=== PATIENT | female | born 1990 | race Caucasian/White ===

== ENCOUNTER 2018-12-28 11:00 | Inpatient (IN) | payer BC ==
[2018-12-28] MEDS ORDERED: HYDROcodone/Acetaminophen 5/325 mg Tablet PO PRN ×4 (11:40→18:40)
[2018-12-28] MEDS ORDERED: NS / Oxytocin 40 units/1000ml 1,000 ML IV PRN (11:40)
[2018-12-28] MEDS ORDERED: hydrALAZINE 20 MG/ML VIAL SLOW IVP PRN ×2 (11:40→18:40)
[2018-12-28] MEDS ORDERED: Promethazine HCl 25 MG/ML VIAL IM PRN ×2 (11:40→12:48)
[2018-12-28] MEDS ORDERED: Zolpidem Tartrate 5 MG TAB PO PRN (11:40)
[2018-12-28] MEDS ORDERED: Ondansetron PF 4 MG/2 ML Vial IVP PRN ×3 (11:40→18:40)
[2018-12-28] MEDS ORDERED: Ibuprofen 800 MG TAB PO PRN (11:40)
[2018-12-28] MEDS ORDERED: Butorphanol Tartrate 1 MG/ML VIAL SLOW IVP PRN (11:40)
[2018-12-28] MEDS ORDERED: Lidocaine 1% (PF) 30 ML VIAL SC PRN (11:40)
[2018-12-28] MEDS ORDERED: NS w/ Oxytocin 10 units 500 ML IV SCH (11:45)
[2018-12-28 12:00] LABS: Hemoglobin 13.6 g/dL (12.0-16.0); Mean Corpuscular HGB CONC 35.2 g/dL (32.0-36.0); Mean Corpuscular Hemoglobin 33.8 pg (27.0-31.0); Mean Corpuscular Volume 96.2 fL (78.0-98.0); Mean Platelet Volume 6.9 fL (7.4-10.4); Platelet Count 209 thou/uL (130-400); RBC Distribution Width 11.5 % (11.5-14.5); Red Blood Cell (RBC) Count 4.02 mill/uL (4.20-5.40); White Blood Cell (WBC) Count 11.3 thou/uL (4.8-10.8)
[2018-12-28] MEDS ORDERED: Fentanyl 4 mcg/Bup 0.1% Cadd 100 ML ONE (12:08)
[2018-12-28] MEDS ORDERED: Lidocaine 1.5%/Epinephrine 1:200,000 5 ML AMPUL IJ ONE (12:22)
[2018-12-28] MEDS ORDERED: Lidocaine 1% PF 5 ML VIAL ONE (12:22)
[2018-12-28] MEDS: Lactated Ringer's 1,000 ML IV SCH ×2 (12:42→12:54)
[2018-12-28 12:43] LABS: HBSAg Index 0.26 S/CO (0-0.99); Hep B Surf Ag Non-Reactive S/CO (NonReactive); Syphilis Antibody Nonreactive (Nonreactive); Syphilis Antibody Index 0.01 S/CO (<1.00 Non-Reactive)
[2018-12-28] MEDS ORDERED: Naloxone HCl 0.4 mg/ml Vial IVP PRN ×2 (12:48)
[2018-12-28] MEDS ORDERED: Lactated Ringer's 500 ML IV PRN (12:48)
[2018-12-28] MEDS ORDERED: ePHEDrine/0.9% NaCl/PF SYRINGE 50 mg/10 ml SLOW IVP PRN (12:48)
[2018-12-28] MEDS ORDERED: Acetaminophen 325 MG TAB PO PRN (12:48)
[2018-12-28] MEDS ORDERED: diphenhydrAMINE 50 MG/ML VIAL IVP PRN (12:48)
[2018-12-28 12:59] VITALS: BMI 27.1
[2018-12-28] MEDS ORDERED: Fentanyl 4 mcg/Bupivacaine 0.1% Cassette 100 ML EPIDURAL SCH (13:00)
[2018-12-28] MEDS ORDERED: Communication Order-Pharmacy FS SCH (13:00)
[2018-12-28] MEDS ORDERED: Milk Of Magnesia 30 ML UDCUP PO PRN (18:40)
[2018-12-28] MEDS ORDERED: Preparation H Ointment 28 GM TUBE PR PRN (18:40)
[2018-12-28] MEDS ORDERED: Adacel (T-DAP) 0.5 ML SYRINGE IM ONE (18:40)
[2018-12-28] MEDS ORDERED: Bisacodyl 10 MG SUPP PR PRN (18:40)
[2018-12-28] MEDS ORDERED: Benzocaine-Menthol 82.5 ML CAN TOP PRN (18:40)
[2018-12-28] MEDS ORDERED: NS / Oxytocin 40 units/1000ml 1,000 ML IV SCH (18:45)
[2018-12-28] MEDS: Ibuprofen 800 MG TAB PO SCH (21:37)
[2018-12-28] MEDS: Docusate Calcium (SURFAK) 240 MG CAP PO SCH (21:37)
--- NOTE | 2018-12-29 02:10 | DN ---
DATE OF PROCEDURE: 12/28/2018 PREOPERATIVE DIAGNOSES: 1. A 28-year-old female, G4, P0-2-1-1 at 37 and 2 days with active labor. 2. Poor obstetric history with a history of a delivery by premature rupture of the membranes at 36 weeks and 1 day, and a history of a 22-week abruption with a demise. 3. Group B Streptococcus negative. 4. Artificial rupture of membranes for clear fluid. 5. Insomnia, on Ambien to aid sleep. POSTOPERATIVE DIAGNOSES: 1. A 28-year-old female, G4, P0-2-1-1 at 37 and 2 days with active labor. 2. Poor obstetric history with a history of a delivery by premature rupture of the membranes at 36 weeks and 1 day, and a history of a 22-week abruption with a demise. 3. Group B Streptococcus negative. 4. Artificial rupture of membranes for clear fluid. 5. Insomnia, on Ambien to aid sleep. 6. Live-born male infant at term. PROCEDURE: Spontaneous vaginal delivery. ANESTHESIA: Epidural. ESTIMATED BLOOD LOSS: 104 mL. CLINICAL HISTORY: This patient is a 28-year-old, G4, P-0-2-1-1, who presented to her office visit today for routine OB care. She was checked and noted to be 5 cm, 60% effaced, and -2 station. The patient had an uneventful course other than the fact of history of poor OB outcomes. The patient was counseled about augmentation of labor and was sent directly as a direct admit to Labor and Delivery. When she was admitted, she had an amniotomy for clear fluid and wanted an epidural immediately afterwards. The epidural was placed with adequate anesthesia. She continued to progress and Pitocin was used to augment her labor. The patient reached complete cervical dilation and +2 station and began to push. DETAILS OF THE PROCEDURE: With good maternal effort, the patient was able to push the vertex to position. She delivered the head and a nuchal cord was noted which was unable to be reduced. The patient also had a compound presentation with the posterior arm delivering with the shoulders. The delivery of the posterior arm, the anterior shoulder, and the remainder of the 's body was delivered. The cried spontaneously. The cord was doubly clamped and cut and placed on the maternal abdomen for stimulation and continued care. Cord blood was obtained. The placenta was then delivered spontaneously intact with a three-vessel cord. Exploration of the introitus, vagina, and cervix noted a small second-degree laceration which was repaired in a running locking fashion with excellent hemostasis. A clot was noted in the cervical os, which was expressed manually and the uterine fundus was noted to be firm and more than 3 cm below the umbilicus. The patient tolerated the procedure well, and was able to recover on Labor and Delivery in satisfactory condition with her . Again, the infant was a live born male with Apgars of 9 and 9 at 1 and 5 minutes respectively. There were no other issues surrounding this delivery. Weight was unavailable at the time of dictation. Job ID: [id number]
[2018-12-29] MEDS: Ibuprofen 800 MG TAB PO SCH ×3 (05:13→21:18)
[2018-12-29] MEDS: Lactated Ringer's 1,000 ML IV SCH ×3 (08:18→12:33)
[2018-12-29] MEDS: Ferrous Sulfate 325 MG TAB PO SCH ×2 (08:18→17:25)
[2018-12-29] MEDS: Prenatal Vitamin 1 TAB PO SCH (08:42)
[2018-12-29] MEDS: Docusate Calcium (SURFAK) 240 MG CAP PO SCH ×2 (08:42→21:21)
[2018-12-29] MEDS ORDERED: Diphenoxylate HCl/Atropine Tablet PO PRN (21:09)
[2018-12-30] MEDS: Lactated Ringer's 1,000 ML IV SCH ×2 (04:57→13:12)
[2018-12-30] MEDS: Ibuprofen 800 MG TAB PO SCH ×2 (04:58→13:46)
[2018-12-30 08:31] VITALS: BP 111/55; TEMP 97.6
[2018-12-30] MEDS: Prenatal Vitamin 1 TAB PO SCH (10:03)
[2018-12-30] MEDS: Docusate Calcium (SURFAK) 240 MG CAP PO SCH (10:03)
[2018-12-30] MEDS: Ferrous Sulfate 325 MG TAB PO SCH (10:04)
== END 2018-12-30 16:15 | disposition home or self-care (01) | DRG 806 ==
LOC: L&D 11:00 → 3SW 20:44
PROVIDERS: ADMIT Obstetrics & Gynecology; ATTEND Obstetrics & Gynecology
PROC: 10E0XZZ Delivery of Products of Conception, External Approach (ICD-10-PCS; principal; 2018-12-28)
PROC: 0KQM0ZZ Repair Perineum Muscle, Open Approach (ICD-10-PCS; 2018-12-28)
DX: O69.81X0 Labor and delivery complicated by cord around neck, without compression, not applicable or unspecified (principal); O99.354 Diseases of the nervous system complicating childbirth; Z37.0 Single live birth; O32.6XX0 Maternal care for compound presentation, not applicable or unspecified; G47.00 Insomnia, unspecified; Z3A.37 37 weeks gestation of pregnancy; O70.1 Second degree perineal laceration during delivery
CPT/HCPCS: 36415; 51702; 85027; 86780; 86850; 86900; 86901; 87340; J2001; J2590; J3490

== ENCOUNTER 2021-06-25 12:43 | Outpatient (CLI) | payer BC ==
[2021-06-26 11:36] LABS: SARS-CoV-2 PCR by NAA Not Detected (NotDetected)
== END 2021-06-25 12:44 | disposition home or self-care (01) ==
LOC: LABBT 12:43
PROVIDERS: ATTEND Internal Medicine Gastroenterology
DX: Z01.812 Encounter for preprocedural laboratory examination (principal); Z20.822 Contact with and (suspected) exposure to COVID-19
CPT/HCPCS: 81256; U0003; U0005

== ENCOUNTER 2021-06-29 07:39 | Day surgery (SDC) | payer BC ==
[2021-06-28 14:40] VITALS: BMI 28.5
[2021-06-29 07:46] LABS: #Basophils 0.1 thou/uL (0.0-0.2); #Eosinphils 0.2 thou/uL (0.0-0.7); #Lymphocytes 4.8 thou/uL (1.20-3.40); #Monocytes 0.7 thou/uL (0.11-0.59); #Neutrophils 4.2 thou/uL (1.40-6.50); %Basophils 1.5 % (0.0-1.0); %Eosinophils 2.1 % (0.0-10.0); %Lymphocytes 47.9 % (21.0-51.0); %Neutrophils 41.6 % (42.0-75.0); Hemoglobin 14.3 g/dL (12.0-16.0); Mean Corpuscular HGB CONC 33.1 g/dL (32.0-36.0); Mean Corpuscular Volume 93.6 fL (78.0-98.0); Mean Platelet Volume 6.4 fL (7.4-10.4); Platelet Count 296 thou/uL (130-400); RBC Distribution Width 13.6 % (11.5-14.5); Red Blood Cell (RBC) Count 4.61 mill/uL (4.20-5.40)
[2021-06-29 08:01] LABS: PTT 27.5 sec (22.9-36.1); Prothrombin Time 13.4 sec (12.0-14.7)
[2021-06-29] MEDS ORDERED: Lidocaine 1% PF 5 ML VIAL ONE ×2 (08:29→09:02)
[2021-06-29] MEDS ORDERED: Sodium Bicarbonate 2.5 MEQ/5 ML VIAL ONE (08:29)
[2021-06-29 09:59] VITALS: BP 105/72; TEMP 99
[2021-06-29] MEDS ORDERED: FLU VACC QS2021-22(6MOS UP)/PF 60 MCG/0.5 ML SYRINGE IM ONE (15:00)
== END 2021-06-29 12:20 | disposition home or self-care (01) ==
LOC: ULT 07:39
PROVIDERS: ATTEND Internal Medicine Gastroenterology
PROC: 0FD23ZX Extraction of Left Lobe Liver, Percutaneous Approach, Diagnostic (ICD-10-PCS; principal; 2021-06-29)
DX: K73.9 Chronic hepatitis, unspecified (principal); K83.09 Other cholangitis; K74.00 Hepatic fibrosis, unspecified; Z79.3 Long term (current) use of hormonal contraceptives; Z79.52 Long term (current) use of systemic steroids; Z79.899 Other long term (current) drug therapy
CPT/HCPCS: 47000; 76942; 85025; 85610; 85730; 88307; 88313